=== PATIENT | female | born 1975 | race Caucasian/White ===

== ENCOUNTER 2022-07-22 13:45 | Emergency (ER) | payer OTHER ==
[~2022-07-22] VITALS: Ht 160 cm; Wt 97.1 kg
[2022-07-22 14:04] VITALS: BP 129/92
[2022-07-22] MEDS ORDERED: OFLO5SOL27 LEFT EAR (14:34)
[2022-07-22] MEDS ORDERED: AMOX500C25 PO (14:34)
--- NOTE | 2022-07-22 15:29 | NUR ---
Patient discharged with v/s stable. Written and verbal after care instructions given and explained. Patient alert, oriented and verbalized understanding of instructions. Ambulatory with steady gait. All questions addressed prior to discharge. ID band removed. Patient advised to follow up with PMD. Rx of amoxicillin, ofloxacin (sent) given. Patient educated on indication of medication including possible reaction and side effects. Opportunity to ask questions provided and answered.
[2022-07-22 15:30] VITALS: BP 129/92
== END 2022-07-22 15:30 | disposition home or self-care (01) ==
LOC: MED 13:45
DX: H66.92 Otitis media, unspecified, left ear (principal); H60.92 Unspecified otitis externa, left ear
CPT/HCPCS: 99283